=== PATIENT | male | born 1955 | race Caucasian/White ===

== ENCOUNTER 2020-08-26 17:24 | Emergency (ER) | payer OTHER ==
[2020-08-26] MEDS ORDERED: PREDNISONE 20MG20 MG PO (20:32)
== END 2020-08-26 21:00 | disposition home or self-care (01) ==
LOC: FER 17:24
DX: R60.0 Localized edema (principal); I10 Essential (primary) hypertension
CPT/HCPCS: 93971; J1100

== ENCOUNTER → 2021-07-06 | Day surgery (SDC) | payer OTHER ==
[~2021-07-06] VITALS: Ht 170.2 cm; Wt 93.0 kg
[~2021-07-06] MED LIST: ADDERALL 30 MG30 MG PO; FLUOXETINE HCL40 MG PO; MOTRIN600 MG PO; PREDNISONE 20MG20 MG PO; TOPROL XL 25MG25 MG PO
== END | disposition home or self-care (01) ==
LOC: FAS 09:03
DX: K22.2 Esophageal obstruction (principal); K31.9 Disease of stomach and duodenum, unspecified; K22.10 Ulcer of esophagus without bleeding; K31.7 Polyp of stomach and duodenum; K22.89 Other specified disease of esophagus; K44.9 Diaphragmatic hernia without obstruction or gangrene; I10 Essential (primary) hypertension; Z88.8 Allergy status to other drugs, medicaments and biological substances; Z96.652 Presence of left artificial knee joint; Z87.891 Personal history of nicotine dependence; Z88.7 Allergy status to serum and vaccine; K29.70 Gastritis, unspecified, without bleeding
CPT/HCPCS: C1726; J2704; J7120

== ENCOUNTER → 2021-10-26 | Day surgery (SDC) | payer OTHER ==
[~2021-10-26] VITALS: Ht 170.2 cm; Wt 93.0 kg
[~2021-10-26] MED LIST changes: +CARAFATE1 GM PO; +PROTONIX 40MG T40 MG PO
== END | disposition home or self-care (01) ==
LOC: FAS 10:43
DX: K22.70 Barrett's esophagus without dysplasia (principal); K29.50 Unspecified chronic gastritis without bleeding; K21.00 Gastro-esophageal reflux disease with esophagitis, without bleeding; K44.9 Diaphragmatic hernia without obstruction or gangrene; K31.9 Disease of stomach and duodenum, unspecified; I10 Essential (primary) hypertension; Z88.8 Allergy status to other drugs, medicaments and biological substances; Z79.899 Other long term (current) drug therapy; Z87.891 Personal history of nicotine dependence; Z72.89 Other problems related to lifestyle
CPT/HCPCS: J2704; J7120